=== PATIENT | female | born 1990 | race Caucasian/White ===

== ENCOUNTER 2019-03-28 10:18 | Outpatient (CLI) | payer OTHER | END 2019-03-28 23:59 | disposition home or self-care (01) | LOC: LAB 10:18 | PROVIDERS: ATTEND Obstetrics & Gynecology | DX: Z36.82 Encounter for antenatal screening for nuchal translucency (principal); Z3A.12 12 weeks gestation of pregnancy | CPT/HCPCS: 84163; 84702 ==

== ENCOUNTER 2019-05-07 08:25 | Outpatient (CLI) | payer OTHER | END 2019-05-07 23:59 | disposition home or self-care (01) | LOC: LAB 08:25 | PROVIDERS: ATTEND Obstetrics & Gynecology | DX: Z13.79 Encounter for other screening for genetic and chromosomal anomalies (principal) | CPT/HCPCS: 82105; 82677; 84702; 86336 ==

== ENCOUNTER 2019-09-30 08:56 | Inpatient (IN) | payer OTHER ==
[~2019-09-30] VITALS: Ht 162.6 cm; Wt 72.7 kg
[2019-09-30 22:05] VITALS: BP 122/79
[2019-09-30] MEDS ORDERED: D5%-LACTATED RINGERS 1,000 ML IV SCH (22:38)
[2019-09-30] MEDS: LACTATED RINGERS 1,000 ML IV SCH (22:56)
[2019-09-30] MEDS ORDERED: ONDANSETRON 2MG/ML, 2ML IVPush PRN (23:00)
[2019-09-30] MEDS ORDERED: TERBUTALINE 1 MG/ML, 1ML IVPush PRN (23:00)
[2019-09-30] MEDS ORDERED: TERBUTALINE 1 MG/ML, 1ML SQ PRN (23:00)
[2019-09-30] MEDS ORDERED: FENTANYL PF 100 MCG/2ML IV PRN (23:00)
[2019-09-30] MEDS ORDERED: MISOPROSTOL 25 MCG TABLET VG PRN (23:00)
[2019-09-30] MEDS ORDERED: NEWBORN KIT ONE (23:07)
[2019-09-30] MEDS ORDERED: MISOPROSTOL 25 MCG TABLET ONE (23:07)
[2019-09-30 23:11] LABS: BASOPHILS # (AUTO) 0.03 x10^3/uL (0-0.1); BASOPHILS % (AUTO) 0 % (0-1); EOSINOPHILS # (AUTO) 0.22 x10^3/uL (0-0.4); EOSINOPHILS % (AUTO) 3 % (1-7); LYMPHOCYTES # (AUTO) 2.97 x10^3/uL (1-3.4); LYMPHOCYTES % (AUTO) 33 % (22-44); MD NO; MEAN CORPUSCULAR HEMOGLOBIN 31.4 pg (27.0-34.8); MEAN CORPUSCULAR HGB CONC 33.9 g/dL (32.4-35.8); MEAN CORPUSCULAR VOLUME 92.7 fL (80-100); MEAN PLATELET VOLUME 8.6 fL (7.4-10.4); MONOCYTES # (AUTO) 0.48 x10^3/uL (0.2-0.8); MONOCYTES % (AUTO) 5 % (2-9); NEUTROPHILS # (AUTO) 5.24 x10^3/uL (1.8-6.8); NEUTROPHILS % (AUTO) 59 % (42-75); PLATELET COUNT 250 x10^3/uL (130-400); RED BLOOD COUNT 3.78 x10^6/uL (3.82-5.3); RED CELL DISTRIBUTION WIDTH 13.6 % (9.6-15.2)
[2019-09-30] MEDS ORDERED: ALBU8.5H8 INH (23:54)
[2019-09-30] MEDS ORDERED: IRON1TAB60 PO (23:54)
[2019-09-30] MEDS ORDERED: PREN-3 PO (23:54)
[2019-10-01] MEDS ORDERED: OXYTOCIN 10 UNITS/ML, 1ML ONE (01:30)
[2019-10-01] MEDS ORDERED: OXYTOCIN 30U/ 0.9% NaCL 500ML 500 ML ONE (04:23)
[2019-10-01] MEDS ORDERED: OXYTOCIN 30U/ 0.9% NaCL 500ML 500 ML IV PRN (04:24)
[2019-10-01] MEDS: LACTATED RINGERS 1,000 ML IV SCH ×4 (04:54→16:40)
[2019-10-01] MEDS ORDERED: ONDANSETRON 2MG/ML, 2ML ONE (06:59)
[2019-10-01] MEDS ORDERED: FENTANYL PF 100 MCG/2ML ONE ×3 (07:25→09:28)
[2019-10-01] MEDS: FENTANYL PF 100 MCG/2ML IVPush PRN ×2 (07:29→08:58)
[2019-10-01] MEDS ORDERED: FENTANYL/BUPIV./NS/PF 250 ML EPIDCONT SCH (08:40)
[2019-10-01] MEDS ORDERED: EPHEDRINE 50 MG/ML, 1ML IVPush PRN (09:00)
[2019-10-01] MEDS ORDERED: FENTANYL PF 500 MCG, BUPIVACAINE/PF 0.5%, 30ML 62.5 ML in SODIUM CHLORIDE 0.9% 177.5 ML EPIDCONT SCH (09:00)
[2019-10-01] MEDS ORDERED: LACTATED RINGERS 1,000 ML IVBOLUS PRN (09:00)
[2019-10-01] MEDS ORDERED: BUPIVACAINE 0.25% ONE (09:28)
[2019-10-01] MEDS ORDERED: LIDOCAINE/PF 1.5% EPI 1:200K, 10 ML ONE (09:31)
[2019-10-01] MEDS: OXYTOCIN 30U/ 0.9% NaCL 500ML 500 ML IV SCH (16:07)
[2019-10-01] MEDS ORDERED: OXYcodone IR 5MG TABLET PO PRN (16:30)
[2019-10-01] MEDS ORDERED: ONDANSETRON 2MG/ML, 2ML IV PRN (16:30)
[2019-10-01] MEDS ORDERED: MISOPROSTOL 200 MCG TABLET PR PRN (16:30)
[2019-10-01] MEDS ORDERED: SIMETHICONE 80 MG CHEW TAB PO PRN (16:30)
[2019-10-01] MEDS ORDERED: ACETAMINOPHEN 325 MG TABLET PO PRN (16:30)
[2019-10-01] MEDS ORDERED: IBUPROFEN 600 MG TABLET ONE (17:06)
[2019-10-01] MEDS ORDERED: OXYcodone/APAP 5/325MG TABLET ONE (17:07)
[2019-10-01] MEDS: OXYcodone/APAP 5/325MG TABLET PO PRN ×2 (17:10→21:38)
[2019-10-01 18:20] VITALS: BP 117/81
[2019-10-01 20:00] VITALS: BP 101/62
[2019-10-01] MEDS: IBUPROFEN 600 MG TABLET PO PRN (23:39)
[2019-10-02] VITALS: BP 121/78
[2019-10-02] MEDS: LACTATED RINGERS 1,000 ML IV SCH ×2 (00:40→08:40)
[2019-10-02 01:38] LABS: BASOPHILS # (AUTO) 0.04 x10^3/uL (0-0.1); BASOPHILS % (AUTO) 0 % (0-1); EOSINOPHILS # (AUTO) 0.09 x10^3/uL (0-0.4); EOSINOPHILS % (AUTO) 1 % (1-7); LYMPHOCYTES # (AUTO) 2.08 x10^3/uL (1-3.4); LYMPHOCYTES % (AUTO) 19 % (22-44); MD NO; MEAN CORPUSCULAR HEMOGLOBIN 31.7 pg (27.0-34.8); MEAN CORPUSCULAR VOLUME 93.2 fL (80-100); MEAN PLATELET VOLUME 8.5 fL (7.4-10.4); MONOCYTES # (AUTO) 0.47 x10^3/uL (0.2-0.8); MONOCYTES % (AUTO) 4 % (2-9); NEUTROPHILS # (AUTO) 8.31 x10^3/uL (1.8-6.8); NEUTROPHILS % (AUTO) 76 % (42-75); PLATELET COUNT 225 x10^3/uL (130-400); RED BLOOD COUNT 3.38 x10^6/uL (3.82-5.3); RED CELL DISTRIBUTION WIDTH 13.4 % (9.6-15.2)
[2019-10-02] MEDS: OXYTOCIN 30U/ 0.9% NaCL 500ML 500 ML IV SCH (02:07)
[2019-10-02 04:00] VITALS: BP 118/69
[2019-10-02 08:00] VITALS: BP 115/75
[2019-10-02] MEDS: OXYcodone/APAP 5/325MG TABLET PO PRN ×4 (08:02→20:35)
[2019-10-02] MEDS: PRENATAL VIT/IRON/FA 1 EACH TABLET PO SCH (08:02)
[2019-10-02] MEDS: DOCUSATE 100 MG CAPSULE PO PRN ×2 (08:02→20:33)
[2019-10-02] MEDS: IBUPROFEN 600 MG TABLET PO PRN ×2 (08:02→14:17)
[2019-10-02 12:33] VITALS: BP 123/84
[2019-10-02 16:36] VITALS: BP 115/81
[2019-10-02 20:30] VITALS: BP 125/85
[2019-10-03] MEDS: OXYcodone/APAP 5/325MG TABLET PO PRN ×4 (00:37→15:53)
[2019-10-03] MEDS: IBUPROFEN 600 MG TABLET PO PRN ×2 (05:00→11:59)
[2019-10-03] MEDS ORDERED: IBUP-1222 PO (08:08)
[2019-10-03] MEDS ORDERED: OXYC-302 PO (08:08)
[2019-10-03] MEDS: DOCUSATE 100 MG CAPSULE PO PRN (08:32)
[2019-10-03] MEDS: PRENATAL VIT/IRON/FA 1 EACH TABLET PO SCH (08:32)
[2019-10-03 08:40] VITALS: BP 112/73
== END 2019-10-03 18:18 | disposition home or self-care (01) | DRG 806 ==
LOC: UNDOADMIN 22:09 → EDIP 22:09 → LDIP 22:37 → 2NE 10-01 18:05 → 2NW 10-01 18:08
PROVIDERS: ADMIT Obstetrics & Gynecology; ATTEND Obstetrics & Gynecology
PROC: 10E0XZZ Delivery of Products of Conception, External Approach (ICD-10-PCS; principal; 2019-10-01)
PROC: 0KQM0ZZ Repair Perineum Muscle, Open Approach (ICD-10-PCS; 2019-10-01)
PROC: 3E0P7VZ Introduction of Hormone into Female Reproductive, Via Natural or Artificial Opening (ICD-10-PCS; 2019-10-01)
PROC: 3E0R3BZ Introduction of Anesthetic Agent into Spinal Canal, Percutaneous Approach (ICD-10-PCS; 2019-10-01)
PROC: 00HU33Z Insertion of Infusion Device into Spinal Canal, Percutaneous Approach (ICD-10-PCS; 2019-10-01)
DX: O36.5930 Maternal care for other known or suspected poor fetal growth, third trimester, not applicable or unspecified (principal); O99.354 Diseases of the nervous system complicating childbirth; Z37.0 Single live birth; Z3A.39 39 weeks gestation of pregnancy; O99.52 Diseases of the respiratory system complicating childbirth; J45.909 Unspecified asthma, uncomplicated; F32.9 Major depressive disorder, single episode, unspecified; O70.1 Second degree perineal laceration during delivery; O70.0 First degree perineal laceration during delivery; O26.893 Other specified pregnancy related conditions, third trimester; G43.909 Migraine, unspecified, not intractable, without status migrainosus; Z79.899 Other long term (current) drug therapy; Z67.41 Type O blood, Rh negative; Z88.2 Allergy status to sulfonamides; Z88.8 Allergy status to other drugs, medicaments and biological substances
CPT/HCPCS: 36415; S0020; 85025; 86592; 86850; 86900; G0378; J2405; J3010; J3490; J2590; J7050; J7120

== ENCOUNTER 2020-10-05 11:56 | Emergency (ER) | payer OTHER ==
[~2020-10-05] VITALS: Ht 162.6 cm; Wt 74.8 kg
[~2020-10-05 11:56] MED LIST: ALBU8.5H8 INH; IBUP-1222 PO; IRON1TAB60 PO; OXYC1TAB14 PO; PREN-3 PO
[2020-10-05 12:24] VITALS: BP 133/97
--- NOTE | 2020-10-05 12:31 | NUR ---
Pt stated that she thinks she has a cat nail stuck in her left index finger. Stated that it happened about an hour ago. She was able to excise part of the nail with a needle at home.
[2020-10-05] MEDS ORDERED: LIDOCAINE-MPF 1%, 2ML ONE (12:39)
[2020-10-05] MEDS ORDERED: LIDOCAINE-MPF 1%, 5ML ONE ×2 (12:40→12:41)
[2020-10-05] MEDS ORDERED: LIDOCAINE 1%-EPI 1:100K, 20ML SQ ONE (13:00)
== END 2020-10-05 13:45 | disposition home or self-care (01) ==
LOC: ED 13:19
DX: L03.012 Cellulitis of left finger (principal); M79.645 Pain in left finger(s)
CPT/HCPCS: 99283